=== PATIENT | female | born 1960 | race Two or more races ===

== ENCOUNTER 2017-06-05 12:03 | Observation (INO) | payer SELFPAY ==
[~2017-06-05] VITALS: Ht 152.4 cm; Wt 59.0 kg
[~2017-06-05 12:03] MED LIST: CHOL100013 PO; HYDR25TA9 PO; LISI-334 PO
--- NOTE | 2017-06-05 12:13 | PHYS DOC ---
Past Medical History Past Medical History: Hypertension Past Surgical History: No Surgical History Alcohol Use: None Drug Use: None Adult General Chief Complaint Chief Complaint: CHEST PAIN HPI HPI Patient is a 57 year old female who presents with Chest pain and anxiety. Last night at 3 AM this 57-year-old female began having chest pain. It was midsternal and radiates to the neck and to the upper abdomen. It was associated with anxiety. She was seen 05/20/17 also for chest pain and had a negative workup at that time. She denies having a family history of coronary artery disease or a personal history of coronary artery disease. Only significant past medical history is hypertension. She denies having any cardiac stress tests in the past. She was recently begun on lisinopril for blood pressure control. The pain is constant and radiates to the neck and to the abdomen. She denies any exacerbating or alleviating factors. She describes it as 10 out of 10. It is associated with anxiety. Review of Systems Review of Systems Constitutional: Denies fever or chills Eyes: Denies change in visual acuity, redness, or eye pain HENT: Denies nasal congestion or sore throat Respiratory: Denies cough or shortness of breath Cardiovascular: No additional information not addressed in HPI GI: Denies abdominal pain, nausea, vomiting, bloody stools or diarrhea : Denies dysuria or hematuria Musculoskeletal: Denies back pain or joint pain Integument: Denies rash or skin lesions Neurologic: Denies headache, focal weakness or sensory changes Endocrine: Denies polyuria or polydipsia Family History Family History Denies cardiac history in the family Current Medications Current Medications Current Medications Medications (Trade) Dose Ordered Sig/[facility] Start Time Stop Time Status Last Admin Dose Admin Nitroglycerin (Nitro-Bid Oint) 1 inch 1X ONCE 06/05/17 12:45 06/05/17 12:46 DC 06/05/17 13:31 1 INCH Lisinopril Allergies Allergies Allergies Coded Allergies Type Severity Reaction Last Updated Verified No Known Drug Allergies 05/18/17 No Physical Exam Physical Exam Constitutional: Well developed, well nourished, no acute distress, non-toxic appearance. HENT: Normocephalic, atraumatic, bilateral external ears normal, oropharynx moist, no oral exudates, nose normal. Eyes: PERRLA, EOMI, conjunctiva normal, no discharge. Neck: Normal range of motion, no tenderness, supple, no stridor. Cardiovascular:Heart rate regular rhythm, no murmur. Lungs & Thorax: Bilateral breath sounds clear to auscultation Abdomen: Bowel sounds normal, soft, no tenderness, no masses, no pulsatile masses. Skin: Warm, dry, no erythema, no rash. Back: No tenderness, no CVA tenderness. Extremities: No tenderness, no cyanosis, no clubbing, ROM intact, no edema. Neurologic: Alert and oriented X 3, normal motor function, normal sensory function, no focal deficits noted. Psychologic: Affect normal, judgement normal, mood normal. Current Patient Data Vital Signs Vital Signs Date Time Temp Pulse Resp B/P (MAP) Pulse Ox O2 Delivery O2 Flow Rate FiO2 06/05/17 13:31 58 166/80 06/05/17 13:30 98 Room Air 06/05/17 12:15 97.6 18 97.6 Lab Values Laboratory Tests Test 06/05/17 12:13 06/05/17 12:14 White Blood Count 8.3 x10^3/uL (4.0-11.0) Red Blood Count 3.56 x10^6/uL (3.50-5.40) Hemoglobin 11.4 g/dL (12.0-15.5) L Hematocrit 32.5 % (36.0-47.0) L Mean Corpuscular Volume 91 fL (79-100) Mean Corpuscular Hemoglobin 32 pg (25-35) Mean Corpuscular Hemoglobin Concent 35 g/dL (31-37) Red Cell Distribution Width 13.7 % (11.5-14.5) Platelet Count 412 x10^3/uL (140-400) H Neutrophils (%) (Auto) 62 % (31-73) Lymphocytes (%) (Auto) 28 % (24-48) Monocytes (%) (Auto) 7 % (0-9) Eosinophils (%) (Auto) 2 % (0-3) Basophils (%) (Auto) 1 % (0-3) Neutrophils # (Auto) 5.2 x10^3uL (1.8-7.7) Lymphocytes # (Auto) 2.3 x10^3/uL (1.0-4.8) Monocytes # (Auto) 0.6 x10^3/uL (0.0-1.1) Eosinophils # (Auto) 0.2 x10^3/uL (0.0-0.7) Basophils # (Auto) 0.1 x10^3/uL (0.0-0.2) Sodium Level 138 mmol/L (136-145) Potassium Level 4.5 mmol/L (3.5-5.1) Chloride Level 101 mmol/L (98-107) Carbon Dioxide Level 29 mmol/L (21-32) Anion Gap 8 (6-14) Blood Urea Nitrogen 21 mg/dL (7-20) H Creatinine 0.5 mg/dL (0.6-1.0) L Estimated GFR (Cockcroft-Gault) 126.3 BUN/Creatinine Ratio 42 (6-20) H Glucose Level 128 mg/dL (70-99) H Calcium Level 8.6 mg/dL (8.5-10.1) Total Bilirubin 0.3 mg/dL (0.2-1.0) Aspartate Amino Transferase (AST) 42 U/L (15-37) H Alanine Aminotransferase (ALT) 25 U/L (14-59) Alkaline Phosphatase 151 U/L (46-116) H Troponin I Quantitative < 0.017 ng/mL (0.000-0.055) Total Protein 7.7 g/dL (6.4-8.2) Albumin 3.7 g/dL (3.4-5.0) Albumin/Globulin Ratio 0.9 (1.0-1.7) L POC Troponin I 0.00 ng/ml (<0.08) Laboratory Tests 06/05/17 12:13 Laboratory Tests 06/05/17 12:13 EKG EKG EKG is a normal sinus rhythm with a rate of 63. There are no ischemic changes.[] Interpretation Time: 12:18 Radiology/Procedures Radiology/Procedures CXR: No acute abnormalities interpreted by radiologist. Impressions: Chest Pain Course & Med Decision Making Course & Med Decision Making Negative evaluation in the emergency department. This is the second visit for chest pain. Given this the decision is made to admit observation status to the hospitalist service. The patient remains in stable condition in the emergency department. Aspirin given by paramedics and Nitropaste applied in the ER. Dragon Disclaimer Dragon Disclaimer This electronic medical record was generated, in whole or in part, using a voice recognition dictation system. Departure Departure Disposition: 09 ADMITTED INPATIENT Admitting Physician: Yvonne Deal Referrals: NO PCP (PCP) PRITESH ATKINSON MD Jun 05, 2017 12:13
[2017-06-05 12:28] LABS: BASO # 0.1 x10^3/uL (0.0-0.2); BASO % 1 % (0-3); EOS % 2 % (0-3); HEMATOCRIT 32.5 % (36.0-47.0); HEMOGLOBIN 11.4 g/dL (12.0-15.5); LYMPH # 2.3 x10^3/uL (1.0-4.8); LYMPH % 28 % (24-48); MEAN CORPUSCULAR HEMOGLOBIN 32 pg (25-35); MEAN CORPUSCULAR HGB CONC 35 g/dL (31-37); MEAN CORPUSCULAR VOLUME 91 fL (79-100); MONO % 7 % (0-9); NEUT % 62 % (31-73); PLATELET COUNT 412 x10^3/uL (140-400); RED BLOOD COUNT 3.56 x10^6/uL (3.50-5.40); RED CELL DISTRIBUTION WIDTH 13.7 % (11.5-14.5); WHITE BLOOD COUNT 8.3 x10^3/uL (4.0-11.0)
[2017-06-05 12:45] LABS: ALBUMIN 3.7 g/dL (3.4-5.0); ALBUMIN/GLOBULIN RATIO 0.9 (1.0-1.7); CALCIUM 8.6 mg/dL (8.5-10.1); CREATININE 0.5 mg/dL (0.6-1.0); GFR 126.3; TOTAL BILIRUBIN 0.3 mg/dL (0.2-1.0); TOTAL PROTEIN 7.7 g/dL (6.4-8.2)
[2017-06-05] MEDS ORDERED: NITROGLYCERIN OINT 1 GM PACKET. TP ONE (12:45)
[2017-06-05 12:46] LABS: POTASSIUM 4.5 mmol/L (3.5-5.1)
--- NOTE | 2017-06-05 12:56 | RAD ---
PORTABLE CHEST 1V Clinical Indication: Chest pain Comparison: Chest radiograph dated 05/18/2017 Findings: Low lung volume. No focal consolidation. Normal pulmonary vasculature. No pleural effusion or pneumothorax. Stable borderline cardiomegaly. Stable tortuous thoracic aorta. No acute osseous abnormality. IMPRESSION: 1. No focal consolidation. 2. Stable borderline cardiomegaly.
--- NOTE | 2017-06-05 13:25 | EKG ---
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
--- NOTE | 2017-06-05 14:14 | PDOC1 ---
History and Physical Date of Admission Date of Admission DATE: 06/05/17 TIME: 14:07 Identification/Chief Complaint Chief Complaint CP left sided Problems: Source Source: Caregiver, Chart review, Patient History of Present Illness History of Present Illness 57 female admitted for left sided CP and palpitations while at rest, denies diaphoresis, Limited french, son translates for me,. She was just here and dc oct 13 for similar, echo showed good ef, MPI was low risk, She claims compliance on the 2 BP meds that she is on but cant tell me the names bec of language barrier (names are all in french per son), NOn smoker, non drinker, She has BOV, neck dc from high BP Her systolic is 160s with HR 60s in er, She presented similarly the last time. SHe is SP and no PCP,. I will admit to control the BP, and hopefully that will resolve the CP. Past Medical History Cardiovascular: HTN Pulmonary: No pertinent hx CENTRAL NERVOUS SYSTEM: Other GI: No pertinent hx Heme/Onc: No pertinent hx Hepatobiliary: No pertinent hx Psych: No pertinent hx Musculoskeletal: Osteoarthritis Rheumatologic: No pertinent hx Infectious disease: No pertinent hx Renal/: No pertinent hx Endocrine: No pertinent hx Past Surgical History Past Surgical History: No pertinent history Family History Family History: Coronary Artery Disease, Hypertension Social History Smoke: No ALCOHOL: none Drugs: None Current Medications Current Medications Current Medications Nitroglycerin (Nitro-Bid Oint) 1 inch 1X ONCE TP Last administered on t 13:31; Start 06/05/17 at 12:45; Stop 06/05/17 at 12:46; Status DC Active Scripts Active Reported Hydrochlorothiazide Tablet (Hydrochlorothiazide) 25 Mg Tablet 25 Mg PO DAILY Vitamin D (Cholecalciferol (Vitamin D3)) 1,000 Unit Capsule 1,000 Unit PO Lisinopril 20 Mg Tablet 1 Tab PO DAILY Allergies Allergies: Coded Allergies: No Known Drug Allergies (Unverified , 05/18/17) ROS General: No: Chills, Night Sweats, Fatigue, Malaise, Appetite, Other PSYCHOLOGICAL ROS: No: Anxiety, Behavioral Disorder, Concentration difficultie , Decreased libido, Depression, Disorientation, Hallucinations, Hostility, Irritablity, Memory difficulties, Mood Swings, Obsessive thoughts, Physical abuse, Sexual abuse, Sleep disturbances, Suicidal ideation, Other Eyes: Yes Blurry vision HEENT: YES: Heacaches, Other (nape pains) ALLERGY AND IMMUNOLOGY: No: Hives, Insect Bite Sensitivity, Itchy/Watery Eyes, Nasal Congestion, Post Nasal Drip, Seasonal Allergies, Other Hematological and Lymphatic: No: Bleeding Problems, Blood Clots, Blood Transfusions, Brusing, Night Sweats, Pallor, Swollen Lymph Nodes, Other ENDOCRINE: No: Breast Changes, Galactorrhea, Hair Pattern Changes, Hot Flashes , Malaise/lethargy, Mood Swings, Palpitations, Polydipsia/polyuria, Skin Changes , Temperature Intolerance, Unexpected Weight Changes, Other Breast: No New/Changing Breast Lumps, No Nipple changes, No Nipple discharge, No Other Respiratory: No: Cough, Hemoptysis, Orthopnea, Pleuritic Pain, Shortness of breath, SOB with excertion, Sputum Changes, Stridor, Tachypnea, Wheezing, Other Cardiovascular: No Chest Pain, No Palpitations, No Orthopnea, No Paroxysmal Noc. Dyspnea, No Edema, No Lt Headedness, No Other Gastrointestinal: No Nausea, No Vomiting, No Abdominal Pain, No Diarrhea, No Constipation, No Melena, No Hematochezia, No Other Genitourinary: No Dysuria, No Frequency, No Incontinence, No Hematuria, No Retention, No Discharge, No Urgency, No Pain, No Flank Pain, No Other, No , No , No , No , No , No , No Musculoskeletal: No Gait Disturbance, No Joint Pain, No Joint Stiffness, No Joint Swelling, No Muscle Pain, No Muscular Weakness, No Pain In:, No Swelling In:, No Other Neurological: No Behavorial Changes, No Bowel/Bladder ControlChng, No Confusion , No Dizziness, No Gait Disturbance, No Headaches, No Impaired Coord/balance, No Memory Loss, No Numbness/Tingling, No Seizures, No Speech Problems, No Tremors, No Visual Changes, No Weakness, No Other Skin: No Dry Skin, No Eczema, No Hair Changes, No Lumps, No Mole Changes, No Mottling, No Nail Changes, No Pruritus, No Rash, No Skin Lesion Changes, No Other, No Acne Physical Exam General: Alert, Oriented X3, Cooperative, No acute distress HEENT: PERRLA Lungs: Clear to auscultation, Normal air movement Heart: S1S2, RRR, no thrills, no rubs, no gallops, no murmurs Cardiovascular: S1, S2 Breasts: Normal, Rt breast nml w/o mass, Lt breast nml w/o mass, Nipples normal Abdomen: Normal bowel sounds, Soft, No tenderness, No hepatosplenomegaly, No masses PELVIC: Nml ext genitalia Extremities: No clubbing, No cyanosis, No edema, Normal pulses, No tenderness/ swelling Skin: No rashes, No breakdown, No significant lesion Neuro: Normal gait, Normal speech, Strength at 5/5 X4 ext, Normal tone, Sensation intact, Cranial nerves 3-12 NL, Reflexes 2+ Psych/Mental Status: Mental status NL, Mood NL Vitals Vitals Vital Signs Date Time Temp Pulse Resp B/P (MAP) Pulse Ox O2 Delivery O2 Flow Rate FiO2 06/05/17 13:31 58 166/80 06/05/17 13:30 98 Room Air 06/05/17 12:15 97.6 18 97.6 Labs Labs Laboratory Tests Test 06/05/17 12:13 06/05/17 12:14 White Blood Count 8.3 x10^3/uL (4.0-11.0) Red Blood Count 3.56 x10^6/uL (3.50-5.40) Hemoglobin 11.4 g/dL (12.0-15.5) Hematocrit 32.5 % (36.0-47.0) Mean Corpuscular Volume 91 fL (79-100) Mean Corpuscular Hemoglobin 32 pg (25-35) Mean Corpuscular Hemoglobin Concent 35 g/dL (31-37) Red Cell Distribution Width 13.7 % (11.5-14.5) Platelet Count 412 x10^3/uL (140-400) Neutrophils (%) (Auto) 62 % (31-73) Lymphocytes (%) (Auto) 28 % (24-48) Monocytes (%) (Auto) 7 % (0-9) Eosinophils (%) (Auto) 2 % (0-3) Basophils (%) (Auto) 1 % (0-3) Neutrophils # (Auto) 5.2 x10^3uL (1.8-7.7) Lymphocytes # (Auto) 2.3 x10^3/uL (1.0-4.8) Monocytes # (Auto) 0.6 x10^3/uL (0.0-1.1) Eosinophils # (Auto) 0.2 x10^3/uL (0.0-0.7) Basophils # (Auto) 0.1 x10^3/uL (0.0-0.2) Sodium Level 138 mmol/L (136-145) Potassium Level 4.5 mmol/L (3.5-5.1) Chloride Level 101 mmol/L (98-107) Carbon Dioxide Level 29 mmol/L (21-32) Anion Gap 8 (6-14) Blood Urea Nitrogen 21 mg/dL (7-20) Creatinine 0.5 mg/dL (0.6-1.0) Estimated GFR (Cockcroft-Gault) 126.3 BUN/Creatinine Ratio 42 (6-20) Glucose Level 128 mg/dL (70-99) Calcium Level 8.6 mg/dL (8.5-10.1) Total Bilirubin 0.3 mg/dL (0.2-1.0) Aspartate Amino Transf (AST/SGOT) 42 U/L (15-37) Alanine Aminotransferase (ALT/SGPT) 25 U/L (14-59) Alkaline Phosphatase 151 U/L (46-116) Troponin I Quantitative < 0.017 ng/mL (0.000-0.055) Total Protein 7.7 g/dL (6.4-8.2) Albumin 3.7 g/dL (3.4-5.0) Albumin/Globulin Ratio 0.9 (1.0-1.7) Bedside Troponin I 0.00 ng/ml (<0.08) Laboratory Tests Test 06/05/17 12:13 06/05/17 12:14 White Blood Count 8.3 x10^3/uL (4.0-11.0) Red Blood Count 3.56 x10^6/uL (3.50-5.40) Hemoglobin 11.4 g/dL (12.0-15.5) Hematocrit 32.5 % (36.0-47.0) Mean Corpuscular Volume 91 fL (79-100) Mean Corpuscular Hemoglobin 32 pg (25-35) Mean Corpuscular Hemoglobin Concent 35 g/dL (31-37) Red Cell Distribution Width 13.7 % (11.5-14.5) Platelet Count 412 x10^3/uL (140-400) Neutrophils (%) (Auto) 62 % (31-73) Lymphocytes (%) (Auto) 28 % (24-48) Monocytes (%) (Auto) 7 % (0-9) Eosinophils (%) (Auto) 2 % (0-3) Basophils (%) (Auto) 1 % (0-3) Neutrophils # (Auto) 5.2 x10^3uL (1.8-7.7) Lymphocytes # (Auto) 2.3 x10^3/uL (1.0-4.8) Monocytes # (Auto) 0.6 x10^3/uL (0.0-1.1) Eosinophils # (Auto) 0.2 x10^3/uL (0.0-0.7) Basophils # (Auto) 0.1 x10^3/uL (0.0-0.2) Sodium Level 138 mmol/L (136-145) Potassium Level 4.5 mmol/L (3.5-5.1) Chloride Level 101 mmol/L (98-107) Carbon Dioxide Level 29 mmol/L (21-32) Anion Gap 8 (6-14) Blood Urea Nitrogen 21 mg/dL (7-20) Creatinine 0.5 mg/dL (0.6-1.0) Estimated GFR (Cockcroft-Gault) 126.3 BUN/Creatinine Ratio 42 (6-20) Glucose Level 128 mg/dL (70-99) Calcium Level 8.6 mg/dL (8.5-10.1) Total Bilirubin 0.3 mg/dL (0.2-1.0) Aspartate Amino Transf (AST/SGOT) 42 U/L (15-37) Alanine Aminotransferase (ALT/SGPT) 25 U/L (14-59) Alkaline Phosphatase 151 U/L (46-116) Troponin I Quantitative < 0.017 ng/mL (0.000-0.055) Total Protein 7.7 g/dL (6.4-8.2) Albumin 3.7 g/dL (3.4-5.0) Albumin/Globulin Ratio 0.9 (1.0-1.7) Bedside Troponin I 0.00 ng/ml (<0.08) VTE Prophylaxis Ordered VTE Prophylaxis Devices: Yes VTE Pharmacological Prophylaxi: Yes Assessment/Plan Assessment/Plan 1. CP recent normal MPI and echo 2. HTN urgency POA with sxs (BOV, neck pains, CP) PLAN: Admit OBS Control BP - see if that will control CP Claims compliance - awaiting names of those meds (HCTZ 25 and lisinopril 20qD) I did discuss side curb with cards, no indic for [facility] at this time, will control BP for now Seen at ER Dw THEA CARREON and cards OCTAVIO MCMANUS MD Jun 05, 2017 14:14
[2017-06-05] MEDS ORDERED: ACETAMINOPHEN 325 MG TABLET. PO PRN (14:15)
[2017-06-05] MEDS ORDERED: IBUPROFEN 400 MG TABLET. PO PRN (14:15)
[2017-06-05] MEDS ORDERED: MORPHINE SULFATE 2 MG/ML DISP.SYRIN. IV PRN (14:15)
[2017-06-05] MEDS ORDERED: ONDANSETRON PF 4 MG/2 ML VIAL. IV PRN (14:30)
[2017-06-05] MEDS ORDERED: hydrALAZINE 20 MG/ML VIAL. IVP ONE (15:00)
[2017-06-05] MEDS ORDERED: ACETAMINOPHEN 325 MG TABLET. PO ONE (15:00)
[2017-06-05 15:18] VITALS: BP 138/70
[2017-06-05] MEDS ORDERED: FLU VACC QS2017-18 (36MOS+)/PF 0.5 ML SYRINGE. VAX IM ONE (15:45)
[2017-06-05] MEDS ORDERED: INFLUENZA VAX SCREEN BY RX. MC ONE (15:45)
[2017-06-05 19:26] VITALS: BP 131/61
[2017-06-05] MEDS: hydrALAZINE 10 MG TABLET PO SCH (21:13)
[2017-06-05 23:28] VITALS: BP 135/67
[2017-06-06 03:59] VITALS: BP 131/63
[2017-06-06 07:00] VITALS: BP 141/68
[2017-06-06] MEDS: hydrALAZINE 10 MG TABLET PO SCH (08:09)
[2017-06-06] MEDS ORDERED: LISINOPRIL 20 MG TABLET PO SCH (09:00)
[2017-06-06] MEDS ORDERED: CHOLECALCIFEROL (VITAMIN D3) 1,000 UNIT TABLET PO SCH (09:00)
[2017-06-06] MEDS ORDERED: hydroCHLOROthiazide 25 MG TABLET PO SCH (09:00)
[2017-06-06 11:07] VITALS: BP 137/51
--- NOTE | 2017-06-06 13:09 | PDOC ---
PROGRESS NOTES Chief Complaint Chief Complaint HTN Chest pain History of Present Illness History of Present Illness A 57 year old lady presented to the ER with a chest pain and high bp. Today she was examined at bedside. She is alert, not in a cute distress and looks well. Recent MPI and echo were normal. Patient is at baseline and possible discharge home today. Vitals Vitals Vital Signs Date Time Temp Pulse Resp B/P (MAP) Pulse Ox O2 Delivery O2 Flow Rate FiO2 06/06/17 11:07 97.8 64 18 137/51 (79) 96 Room Air 97.8 Physical Exam General: Alert, Oriented X3, Cooperative, No acute distress Heart: Regular rate, Normal S1, Normal S2 Lungs: Clear Abdomen: Normal bowel sounds, Soft, No tenderness, No hepatosplenomegaly, No masses Extremities: No clubbing, No cyanosis, No edema, Normal pulses, No tenderness/ swelling Skin: No rashes, No breakdown, No significant lesion Review of Systems Review of Systems fatigue and weakness Assessment and Plan Assessmemt and Plan Assessment: HTN Chest pain Osteoarthritis Anxiety Plan: Patient at baseline, possible discharge today Continue current medications Follow up with PCP if needed Problems: Comment Review of Relevant I have reviewed the following items james (where applicable) has been applied. Labs Laboratory Tests Test 06/05/17 12:13 06/05/17 12:14 White Blood Count 8.3 x10^3/uL (4.0-11.0) Red Blood Count 3.56 x10^6/uL (3.50-5.40) Hemoglobin 11.4 g/dL (12.0-15.5) Hematocrit 32.5 % (36.0-47.0) Mean Corpuscular Volume 91 fL (79-100) Mean Corpuscular Hemoglobin 32 pg (25-35) Mean Corpuscular Hemoglobin Concent 35 g/dL (31-37) Red Cell Distribution Width 13.7 % (11.5-14.5) Platelet Count 412 x10^3/uL (140-400) Neutrophils (%) (Auto) 62 % (31-73) Lymphocytes (%) (Auto) 28 % (24-48) Monocytes (%) (Auto) 7 % (0-9) Eosinophils (%) (Auto) 2 % (0-3) Basophils (%) (Auto) 1 % (0-3) Neutrophils # (Auto) 5.2 x10^3uL (1.8-7.7) Lymphocytes # (Auto) 2.3 x10^3/uL (1.0-4.8) Monocytes # (Auto) 0.6 x10^3/uL (0.0-1.1) Eosinophils # (Auto) 0.2 x10^3/uL (0.0-0.7) Basophils # (Auto) 0.1 x10^3/uL (0.0-0.2) Sodium Level 138 mmol/L (136-145) Potassium Level 4.5 mmol/L (3.5-5.1) Chloride Level 101 mmol/L (98-107) Carbon Dioxide Level 29 mmol/L (21-32) Anion Gap 8 (6-14) Blood Urea Nitrogen 21 mg/dL (7-20) Creatinine 0.5 mg/dL (0.6-1.0) Estimated GFR (Cockcroft-Gault) 126.3 BUN/Creatinine Ratio 42 (6-20) Glucose Level 128 mg/dL (70-99) Calcium Level 8.6 mg/dL (8.5-10.1) Total Bilirubin 0.3 mg/dL (0.2-1.0) Aspartate Amino Transf (AST/SGOT) 42 U/L (15-37) Alanine Aminotransferase (ALT/SGPT) 25 U/L (14-59) Alkaline Phosphatase 151 U/L (46-116) Troponin I Quantitative < 0.017 ng/mL (0.000-0.055) Total Protein 7.7 g/dL (6.4-8.2) Albumin 3.7 g/dL (3.4-5.0) Albumin/Globulin Ratio 0.9 (1.0-1.7) Bedside Troponin I 0.00 ng/ml (<0.08) Medications Current Medications Nitroglycerin (Nitro-Bid Oint) 1 inch 1X ONCE TP Last administered on t 13:31; Start 06/05/17 at 12:45; Stop 06/05/17 at 12:46; Status DC Morphine Sulfate 2 mg PRN Q2HR PRN IV PAIN; Start 06/05/17 at 14:15 Acetaminophen (Tylenol) 650 mg PRN Q6HRS PRN PO Headaches, Temp > 101.5F; Start 06/05/17 at 14:15 Ibuprofen (Motrin) 400 mg PRN Q6HRS PRN PO MILD PAIN Last administered on 06/05 17:53; Start 06/05/17 at 14:15 Hydralazine HCl (Apresoline Inj) 10 mg 1X ONCE IVP ; Start 06/05/17 at 15:00; Stop 06/05/17 at 15:01; Status DC Acetaminophen (Tylenol) 650 mg 1X ONCE PO Last administered on 06/05/17 15: 12; Start 06/05/17 at 15:00; Stop 06/05/17 at 15:01; Status DC Hydralazine HCl (Apresoline) 10 mg TID PO Last administered on 06/06/17 08:09 ; Start 06/05/17 at 21:00 Hydrochlorothiazide (Hydrodiuril) 25 mg DAILY PO Last administered on 08:09; Start 06/06/17 at 09:00 Lisinopril (Prinivil) 20 mg DAILY PO Last administered on 06/06/17 08:09; Start 06/06/17 at 09:00 Vitamin D (Vitamin D3) 1,000 unit DAILY PO Last administered on 06/06/17 08: 09; Start 06/06/17 at 09:00 Ondansetron HCl (Zofran) 4 mg PRN Q6HRS PRN IV NAUSEA/VOMITING; Start at 14:30 Info (Do NOT chart on this placeholder) 1 each 1X ONCE MC ; Start 06/05/17 at 15:45; Stop 06/05/17 at 15:46; Status UNV Influenza Virus Vaccine Quadrival (Fluarix Quad [id number] Syringe) 0.5 ml ONCE ONCE VAX IM Last administered on 06/06/17 08:12; Start 06/05/17 at 15:45; Stop 06/05/17 at 15:46; Status DC Active Scripts Active Reported Hydrochlorothiazide Tablet (Hydrochlorothiazide) 25 Mg Tablet 25 Mg PO DAILY Lisinopril 20 Mg Tablet 1 Tab PO DAILY Vitals/I & O Vital Sign - Last 24 Hours 06/05/17 06/05/17 06/05/17 06/05/17 13:11 13:30 13:31 14:41 Pulse 58 60 58 59 Resp 18 B/P (MAP) 172/81 (111) 166/80 (108) 166/80 136/73 (94) Pulse Ox 99 98 97 O2 Delivery Room Air Room Air Room Air 06/05/17 06/05/17 06/05/17 06/05/17 15:18 15:18 19:26 19:31 Temp 98.0 98.0 98.1 98.0 98.0 98.1 Pulse 60 60 64 Resp 18 18 18 B/P (MAP) 138/70 (92) 138/70 (92) 131/61 (84) Pulse Ox 100 100 98 O2 Delivery Room Air Room Air Room Air Room Air 06/05/17 06/05/17 06/06/17 06/06/17 21:13 23:28 03:59 07:00 Temp 98.1 98.0 97.8 98.1 98.0 97.8 Pulse 64 60 55 59 Resp 18 18 18 B/P (MAP) 131/61 135/67 (89) 131/63 (85) 141/68 (92) Pulse Ox 98 99 96 O2 Delivery Room Air Room Air Room Air 06/06/17 06/06/17 06/06/17 06/06/17 08:00 08:09 08:09 11:07 Temp 97.8 97.8 Pulse 59 59 64 Resp 18 B/P (MAP) 141/68 141/68 137/51 (79) Pulse Ox 96 O2 Delivery Room Air Room Air Intake and Output 06/06/17 06/06/17 06/07/17 15:00 23:00 07:00 Intake Total 300 ml Balance 300 ml VIRGIE CABA III DO Jun 06, 2017 13:09
== END 2017-06-06 13:28 | disposition home or self-care (01) ==
LOC: ER 12:03 → 6 SOUTH 14:22
PROVIDERS: ADMIT Internal Medicine; ATTEND Internal Medicine
DX: R07.2 Precordial pain (principal); I10 Essential (primary) hypertension; I16.0 Hypertensive urgency; F41.9 Anxiety disorder, unspecified; M19.90 Unspecified osteoarthritis, unspecified site; Z82.49 Family history of ischemic heart disease and other diseases of the circulatory system
CPT/HCPCS: 36415; 71010; 80053; 84484; 85025; 90471; 90686; 93005; 99285; G0378; G0379

== ENCOUNTER 2019-01-25 13:14 | Emergency (ER) | payer SELFPAY ==
[~2019-01-25] VITALS: Ht 147.3 cm; Wt 56.7 kg
[~2019-01-25 13:14] MED LIST changes: +HYDR-2145 PO; -HYDR25TA9 PO
[2019-01-25 13:53] LABS: BASO % 1 % (0-3); EOS # 0.1 x10^3/uL (0.0-0.7); EOS % 2 % (0-3); HEMATOCRIT 28.7 % (36.0-47.0); HEMOGLOBIN 10.2 g/dL (12.0-15.5); LYMPH # 1.7 x10^3/uL (1.0-4.8); LYMPH % 24 % (24-48); MEAN CORPUSCULAR HEMOGLOBIN 32 pg (25-35); MEAN CORPUSCULAR HGB CONC 36 g/dL (31-37); MEAN CORPUSCULAR VOLUME 91 fL (79-100); MONO # 0.6 x10^3/uL (0.0-1.1); MONO % 8 % (0-9); NEUT # 4.7 x10^3uL (1.8-7.7); NEUT % 66 % (31-73); PLATELET COUNT 379 x10^3/uL (140-400); RED BLOOD COUNT 3.17 x10^6/uL (3.50-5.40); RED CELL DISTRIBUTION WIDTH 14.4 % (11.5-14.5); WHITE BLOOD COUNT 7.2 x10^3/uL (4.0-11.0)
--- NOTE | 2019-01-25 13:53 | RAD ---
EXAM: CHEST 1 VIEW History: Hypertension, headache COMPARISON: 06/05/2017 TECHNIQUE: Single portable radiograph of the chest FINDINGS: The cardiac silhouette is unremarkable. The lungs are clear bilaterally. The costophrenic sulci are clear and well demarcated. IMPRESSION: No radiographic evidence of an acute cardiopulmonary process. Electronically signed by: Deejay Richardson MD (01/25/2019 1:50 PM) [id number]
[2019-01-25 14:02] LABS: PROTHROMBIN TIME PATIENT 12.8 SEC (11.7-14.0)
[2019-01-25 14:09] LABS: CALCIUM 8.5 mg/dL (8.5-10.1); CREATININE 0.7 mg/dL (0.6-1.0); GFR 85.4; POTASSIUM 3.3 mmol/L (3.5-5.1)
--- NOTE | 2019-01-25 14:13 | RAD ---
CT HEAD WITHOUT CONTRAST 01/25/2019 1:22 PM Indication: Hypertension, headache Comparison: CT head without contrast July 31, 2008 Procedure: Multidetector CT imaging of the head was performed without the administration of contrast. Findings: There is no evidence of acute intracranial hemorrhage. No evidence of subacute territorial infarct is identified. Please note that CT is limited for evaluation of acute ischemia. Nonspecific small focus of hypodensity seen in the right frontal lobe which could reflect a prior lacunar infarct. Correlate with history of stroke. No mass effect or midline shift is identified . The ventricles and basilar cisterns have an appropriate appearance. No abnormal extra-axial fluid collections are seen. No acute osseous changes are identified. Impression: 1. No CT evidence of acute intracranial abnormality 2. Nonspecific, small focus of hypodensity in the right frontal lobe possibly representing encephalomalacia from a prior lacunar infarct. Correlate with history of stroke. If there is clinical concern for acute ischemia, MR imaging is recommended. CT DOSING PQRS STATEMENT: One or more of the following individualized dose reduction techniques were utilized for this examination: 1. Automated exposure control 2. Adjustment of the mA and/or kV according to patient size 3. Use of iterative reconstruction technique Electronically signed by: Gildardo Vasquez MD (01/25/2019 2:09 PM) [id number]
[2019-01-25 14:15] LABS: ALBUMIN 3.4 g/dL (3.4-5.0); ALBUMIN/GLOBULIN RATIO 0.9 (1.0-1.7); MAGNESIUM 1.9 mg/dL (1.8-2.4); TOTAL BILIRUBIN 0.3 mg/dL (0.2-1.0); TOTAL PROTEIN 7.3 g/dL (6.4-8.2)
--- NOTE | 2019-01-25 14:26 | EKG ---
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
[2019-01-25] MEDS ORDERED: POTASSIUM CHLORIDE 20 MEQ TABLET.ER. PO ONE (15:15)
[2019-01-25 16:32] LABS: BILIRUBIN,URINE NEGATIVE (NEG); CLARITY,URINE CLEAR; COLOR,URINE YELLOW; NITRITE,URINE NEGATIVE (NEG); PROTEIN,URINE NEGATIVE (NEG-TRACE); UROBILINOGEN,URINE 0.2 mg/dL (0.2 mg/dL)
[2019-01-25 16:36] LABS: BARBITURATES NEG (NEG); BENZODIAZEPINES NEG (NEG); CANNABINOIDS NEG (NEG); COCAINE NEG (NEG); METHADONE NEG (NEG); OPIATES NEG (NEG); PHENCYCLIDINE NEG (NEG)
[2019-01-25 16:40] LABS: AMPHETAMINE/METHAMPHETAMINE NEG (NEG); BACTERIA,URINE 0 /HPF (0-FEW); RBC,URINE 0 /HPF (0-2); SQUAMOUS EPITHELIAL CELL,UR OCC /LPF
[2019-01-25 17:05] VITALS: BP 163/80
--- NOTE | 2019-01-25 17:17 | PHYS DOC ---
Past Medical History Past Medical History: High Cholesterol, Hypertension Past Surgical History: No Surgical History Alcohol Use: None Drug Use: None Adult General Chief Complaint Chief Complaint: HEADACHE HPI HPI Patient is a 58 year old female with history of high cholesterol, hypertension, who presents to the ED today complaining of headache and blurry vision as well as high blood pressure. Patient states she has well known history of hypertension with headaches and blurry vision, she states today she did not take her medicine and continued to have a headache. She states this headache has been on and off for the last 3 days which is not unusual for her. She states typically whenever she has the headache she experiences blurry vision. She states she went today to the local clinic to be seen and was sent to the ED to be evaluated. Patient denies any chest pain or shortness of breath. Interpretation was provided by the daughter for [place] Review of Systems Review of Systems Constitutional: Denies fever or chills [] Eyes: Denies change in visual acuity, redness, or eye pain [] HENT: Denies nasal congestion or sore throat [] Respiratory: Denies cough or shortness of breath [] Cardiovascular: Reports high blood pressure GI: Denies abdominal pain, nausea, vomiting, bloody stools or diarrhea [] : Denies dysuria or hematuria [] Musculoskeletal: Denies back pain or joint pain [] Integument: Denies rash or skin lesions [] Neurologic: Reports headache and blurry vision, denies focal weakness or sensory changes [] All other systems were reviewed and found to be within normal limits, except as documented in this note. Current Medications Current Medications Current Medications Medications (Trade) Dose Ordered Sig/Deep Start Time Stop Time Status Last Admin Dose Admin Potassium Chloride (Klor-Con) 40 meq 1X ONCE 01/25/19 15:15 01/25/19 15:16 DC 01/25/19 15:39 40 MEQ Allergies Allergies Allergies Coded Allergies Type Severity Reaction Last Updated Verified No Known Drug Allergies 05/18/17 No Physical Exam Physical Exam Constitutional: Well developed, well nourished, no acute distress, non-toxic appearance. [] HENT: Normocephalic, atraumatic, bilateral external ears normal, oropharynx moist, no oral exudates, nose normal. [] Eyes: PERRLA, EOMI, conjunctiva normal, no discharge. [] Neck: Normal range of motion, no tenderness, supple, no stridor. [] Cardiovascular:Heart rate regular rhythm, no murmur [] Lungs & Thorax: Bilateral breath sounds clear to auscultation [] Abdomen: Bowel sounds normal, soft, no tenderness, no masses, no pulsatile masses. [] Skin: Warm, dry, no erythema, no rash. [] Back: No tenderness, no CVA tenderness. [] Extremities: No tenderness, no cyanosis, no clubbing, ROM intact, no edema. [] Neurologic: Alert and oriented X 3, normal motor function, normal sensory function, no focal deficits noted. Cranial nerves II through XII intact Psychologic: Affect normal, judgement normal, mood normal. [] Current Patient Data Vital Signs Vital Signs Date Time Temp Pulse Resp B/P (MAP) Pulse Ox O2 Delivery O2 Flow Rate FiO2 01/25/19 13:31 98.3 70 15 142/65 (90) 99 Room Air 98.3 Lab Values Laboratory Tests Test 01/25/19 13:40 01/25/19 16:20 White Blood Count 7.2 x10^3/uL (4.0-11.0) Red Blood Count 3.17 x10^6/uL (3.50-5.40) L Hemoglobin 10.2 g/dL (12.0-15.5) L Hematocrit 28.7 % (36.0-47.0) L Mean Corpuscular Volume 91 fL (79-100) Mean Corpuscular Hemoglobin 32 pg (25-35) Mean Corpuscular Hemoglobin Concent 36 g/dL (31-37) Red Cell Distribution Width 14.4 % (11.5-14.5) Platelet Count 379 x10^3/uL (140-400) Neutrophils (%) (Auto) 66 % (31-73) Lymphocytes (%) (Auto) 24 % (24-48) Monocytes (%) (Auto) 8 % (0-9) Eosinophils (%) (Auto) 2 % (0-3) Basophils (%) (Auto) 1 % (0-3) Neutrophils # (Auto) 4.7 x10^3uL (1.8-7.7) Lymphocytes # (Auto) 1.7 x10^3/uL (1.0-4.8) Monocytes # (Auto) 0.6 x10^3/uL (0.0-1.1) Eosinophils # (Auto) 0.1 x10^3/uL (0.0-0.7) Basophils # (Auto) 0.0 x10^3/uL (0.0-0.2) Prothrombin Time 12.8 SEC (11.7-14.0) Prothrombin Time INR 1.0 (0.8-1.1) Sodium Level 139 mmol/L (136-145) Potassium Level 3.3 mmol/L (3.5-5.1) L Chloride Level 103 mmol/L (98-107) Carbon Dioxide Level 26 mmol/L (21-32) Anion Gap 10 (6-14) Blood Urea Nitrogen 16 mg/dL (7-20) Creatinine 0.7 mg/dL (0.6-1.0) Estimated GFR (Cockcroft-Gault) 85.4 BUN/Creatinine Ratio 23 (6-20) H Glucose Level 147 mg/dL (70-99) H Calcium Level 8.5 mg/dL (8.5-10.1) Magnesium Level 1.9 mg/dL (1.8-2.4) Total Bilirubin 0.3 mg/dL (0.2-1.0) Aspartate Amino Transferase (AST) 24 U/L (15-37) Alanine Aminotransferase (ALT) 29 U/L (14-59) Alkaline Phosphatase 130 U/L (46-116) H Creatine Kinase 106 U/L (26-192) Creatine Kinase MB (Mass) 1.5 ng/mL (0.0-3.6) Creatine Kinase MB Relative Index 1.4 % (0-4) Troponin I Quantitative < 0.017 ng/mL (0.000-0.055) TH-Dah-G-Type Natriuretic Peptide 122 pg/mL (0-124) Total Protein 7.3 g/dL (6.4-8.2) Albumin 3.4 g/dL (3.4-5.0) Albumin/Globulin Ratio 0.9 (1.0-1.7) L Thyroid Stimulating Hormone (TSH) 1.041 uIU/mL (0.358-3.74) Urine Color Yellow Urine Clarity Clear Urine pH 6.0 Urine Specific [place] 1.015 Urine Protein Negative mg/dL (NEG-TRACE) Urine Glucose (UA) Negative mg/dL (NEG) Urine Ketones (Stick) Negative mg/dL (NEG) Urine Blood Negative (NEG) Urine Nitrite Negative (NEG) Urine Bilirubin Negative (NEG) Urine Urobilinogen Dipstick 0.2 mg/dL (0.2 mg/dL) Urine Leukocyte Esterase Small (NEG) Urine RBC 0 /HPF (0-2) Urine WBC 1-4 /HPF (0-4) Urine Squamous Epithelial Cells Occ /LPF Urine Bacteria 0 /HPF (0-FEW) Urine Opiates Screen Neg (NEG) Urine Methadone Screen Neg (NEG) Urine Barbiturates Neg (NEG) Urine Phencyclidine Screen Neg (NEG) Urine Amphetamine/Methamphetamine Neg (NEG) Urine Benzodiazepines Screen Neg (NEG) Urine Cocaine Screen Neg (NEG) Urine Cannabinoids Screen Neg (NEG) Urine Ethyl Alcohol Neg (NEG) Laboratory Tests 01/25/19 13:40 Laboratory Tests 01/25/19 13:40 EKG EKG 13:[address] Basilio sinus rhythm HR 64 no STEMI[] Radiology/Procedures Radiology/Procedures []PROCEDURE: PORTABLE CHEST 1V EXAM: CHEST 1 VIEW History: Hypertension, headache COMPARISON: 06/05/2017 TECHNIQUE: Single portable radiograph of the chest FINDINGS: The cardiac silhouette is unremarkable. The lungs are clear bilaterally. The costophrenic sulci are clear and well demarcated. IMPRESSION: No radiographic evidence of an acute cardiopulmonary process. Electronically signed by: Deejay Richardson MD (01/25/2019 1:50 PM) [id number] DICTATED and SIGNED BY: DEEJAY RICHARDSON MD DATE: 01/25/19 1350 PROCEDURE: CT HEAD WO CONTRAST CT HEAD WITHOUT CONTRAST 01/25/2019 1:22 PM Indication: Hypertension, headache Comparison: CT head without contrast July 31, 2008 Procedure: Multidetector CT imaging of the head was performed without the administration of contrast. Findings: There is no evidence of acute intracranial hemorrhage. No evidence of subacute territorial infarct is identified. Please note that CT is limited for evaluation of acute ischemia. Nonspecific small focus of hypodensity seen in the right frontal lobe which could reflect a prior lacunar infarct. Correlate with history of stroke. No mass effect or midline shift is identified . The ventricles and basilar cisterns have an appropriate appearance. No abnormal extra-axial fluid collections are seen. No acute osseous changes are identified. Impression: 1. No CT evidence of acute intracranial abnormality 2. Nonspecific, small focus of hypodensity in the right frontal lobe possibly representing encephalomalacia from a prior lacunar infarct. Correlate with history of stroke. If there is clinical concern for acute ischemia, MR imaging is recommended. CT DOSING PQRS STATEMENT: One or more of the following individualized dose reduction techniques were utilized for this examination: 1. Automated exposure control 2. Adjustment of the mA and/or kV according to patient size 3. Use of iterative reconstruction technique Electronically signed by: Gildardo Reyes MD (01/25/2019 2:09 PM) [id number] DICTATED and SIGNED BY: GILDARDO REYES MD DATE: 01/25/19 1403 Course & Med Decision Making Course & Med Decision Making Pertinent Labs and Imaging studies reviewed. (See chart for details) This is a 58-year-old female patient with history of hypertension presenting to the ED today complaining of headache and blurry vision for 3 days. See history of present illness. Patient states this is a typical presentation for him for her when her BP is high, denies anything unusual about her headache and blurry vision today. She is currently on lisinopril and amlodipine which she did not take this morning. He arrives to the ED with blood pressure of 142/65, heart rate of 70, respirations 15 on room air, O2 sats 99% on room air, temperature 98.3. EKG is negative, chest x-ray is negative, labs including troponin are negative.Urine analysis is noted for small amount of leukocytes, patient is a symptomatic. CT of the head is negative for any acute findings, CT mentions nonspecific, small focus of hypodensity in the right frontal lobe possibly representing encephalomalacia from a prior lacunar infarct. Correlate with history of stroke. If there is clinical concern for acute ischemia, MR imaging is recommended. Patient herself does not have any recollection of being diagnosed with a CVA before. Spoke to patient and daughter about her symptoms, this states patient has had chronic headaches and blurry vision and there is nothing new about her symptoms today. They are requesting to be discharged. Discharged to home, encouraged to take her medications every day considering today she did not take her med ication. Encouraged to take Tylenol at home as needed. She has follow-up. Instructed to see the PCP in the course of this week. Compa Disclaimer Compa Disclaimer This electronic medical record was generated, in whole or in part, using a voice recognition dictation system. Departure Departure Impression: Primary Impression: HTN (hypertension) Additional Impression: Headache Disposition: HOME, SELF-CARE Condition: STABLE Referrals: UNKNOWN PCP NAME (PCP) follow up with your doctor this week Patient Instructions: Headache, FAQs, Managing Your High Blood Pressure Additional Instructions: You were evaluated in the emergency room, your blood pressure was 142/65, ensure you take your medications as prescribed. Please take Tylenol/Motrin for pain. Please follow-up with your doctor in the course of this week. Come back to the ED at any point symptoms worsen. 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
== END 2019-01-25 17:30 | disposition home or self-care (01) ==
LOC: ER 13:14
DX: R51 Headache (principal); I10 Essential (primary) hypertension; H53.8 Other visual disturbances; E78.00 Pure hypercholesterolemia, unspecified
CPT/HCPCS: 36415; 70450; 71045; 80053; 80307; 81001; 82553; 83735; 83880; 84443; 84484; 85025; 85610; 93005; 99285-25